=== PATIENT | male | born 1995 | race Caucasian/White ===

== ENCOUNTER 2016-12-28 04:25 | Emergency (ER) | payer OTHER ==
[~2016-12-28] VITALS: Ht 180.3 cm; Wt 74.0 kg
[2016-12-28 04:34] VITALS: BP 122/80; PULSE 83; RESP 16; TEMP 98; O2SAT 98
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
[2016-12-28 04:59] LABS: AUTOMATED NEUTROPHIL # 5.4 TH/MM3 (1.8-7.7); BASOPHIL % 0.3 % (0.0-2.0); EOSINOPHIL # 0.1 TH/MM3 (0-0.4); EOSINOPHIL % 0.6 % (0.0-4.0); HEMATOCRIT 44.6 % (39.0-51.0); HEMO FLAGS DIFF FINAL; LYMPH % 25.4 % (9.0-44.0); LYMPHOCYTE # 2.1 TH/MM3 (1.0-4.8); MEAN CELL VOLUME 88.5 FL (80.0-100.0); MONO % 8.3 % (0.0-8.0); NEUT % 65.4 % (16.0-70.0); PLATELET COUNT 254 TH/MM3 (150-450); RED BLOOD COUNT 5.05 MIL/MM3 (4.50-5.90); RED CELL DISTRIBUTION WIDTH 12.9 % (11.6-17.2); WHITE BLOOD COUNT 8.2 TH/MM3 (4.0-11.0)
[2016-12-28 05:07] LABS: AMPHETAMINE, URINE NEG (NEG); BARBITURATES, URINE NEG (NEG); COCAINE, URINE NEG (NEG)
[2016-12-28 05:17] LABS: ALT (GPT) 25 U/L (12-78); ANION GAP 7 MEQ/L (5-15); AST (GOT) 21 U/L (15-37); BICARBONATE 28.3 MEQ/L (21.0-32.0); BLOOD UREA NITROGEN 9 MG/DL (7-18); CHLORIDE 108 MEQ/L (98-107); GLOMERULAR FILTRATION RATE 116 ML/MIN (>89); SODIUM (NA) 143 MEQ/L (136-145)
[2016-12-28 05:19] LABS: ALKALINE PHOSPHATASE 73 U/L (45-117); TOTAL BILIRUBIN ADULT 0.3 MG/DL (0.2-1.0)
[2016-12-28 05:26] LABS: ACETAMINOPHEN LESS THAN 2.0 MCG/ML (10.0-30.0)
[2016-12-28 09:00] VITALS: BP 125/70; PULSE 89; RESP 20; O2SAT 98
[2016-12-28] MEDS ORDERED: FLUMAZENIL 0.5 MG/5 ML VIAL IV PUSH PRN (09:30)
[2016-12-28] MEDS ORDERED: LORazepam 2 MG/ML VIAL IV PUSH PRN ×4 (09:30)
[2016-12-28] MEDS ORDERED: LORazepam 2 MG TAB PO PRN (09:30)
[2016-12-28] MEDS ORDERED: LORazepam 1 MG TAB PO PRN (09:30)
[2016-12-28 13:20] VITALS: BP 125/72; PULSE 68; RESP 18; TEMP 88.5; O2SAT 95
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
[2016-12-28 18:00] VITALS: BP 122/58; PULSE 72; RESP 18
[2016-12-28 22:00] VITALS: BP 135/76; PULSE 65; RESP 20
[2016-12-29 02:24] VITALS: BP 109/66; PULSE 50; RESP 18; O2SAT 98
[2016-12-29 10:05] VITALS: BP 127/78; PULSE 55; RESP 18
--- NOTE | 2016-12-29 13:43 | PD ---
History of Present Illness Chief Complaint: Psychiatric Symptoms Time Seen by Provider: 13:30 Travel History International Travel<30 Days: No Contact w/Intl Traveler<30days: No Known affected area: No Legal Status Legal Status: Hernandez Act Hernandez Act Signed By: Concha Hernandez Act Comment: Officer Di Higgins [id number] History of Present Illness: 21-year-old male who apparently wrapped a belt around his neck in a suicide attempt. Informed his mother he was going to do this. Police removed the belt and patient was 100% revived. At this time the patient is calm, pleasant and cooperative. He denies any suicidal or homicidal ideation, plan or intent. He states that he has a lot going on right now, including legal matters. (This physician reviewed his records.) He demonstrates no psychotic symptoms and his cognition is completely intact. He is verbally shaq for safety and would like to see an outpatient psychiatrist for follow up care. He was given the referral to Dr. Aries griffin. [facility] Past Medical History ADHD: Yes Bipolar Disorder: Yes Depression: Yes Psychiatric: Yes (bipolar) Immunizations Current: Yes Tetanus Vaccination: < 5 Years Past Surgical History Surgical History: No Previous Surgery Psychiatric History Psychiatric History Hx Psychiatric Treatment: Hx. Depression, BiPolar and ADHD. This physician sees no significant evidence of bipolar disorder at this time. However the patient is 21 years old and appears to be acting out. History of Inpatient Treatment: No Guns or firearms in home: No Social History Hx Alcohol Use: Yes Hx Tobacco Use: Yes Hx Substance Use: Yes Substance Use Type: Alcohol, Marijuana Hx of Substance Use Treatment: No Allergies-Medications (Allergen,Severity, Reaction): Coded Allergies: No Known Allergies (Unverified , 12/28/16) Reported Meds & Prescriptions Reported Meds & Active Scripts Active No Active Prescriptions or Reported Medications Review of Systems Except as stated in HPI: all other systems reviewed are Neg Exam Alert: Yes Taiban: Person, Place, Date, Situation Mood: Calm Affect: Appropriate, Euthymic Speech: Clear, Logical Eye Contact: Normal Memory Intact: Immediate, Recent, Remote Insight/Judgement Adequate MDM Medical Decision Making Medical Record Reviewed: Yes Assessment/Plan Patient's Hernandez act is being lifted and he is being discharged home. As he is currently competent, without suicidal or homicidal ideation or psychosis, and he wishes to be seen on an outpatient basis, least restrictive alternative applies. Furthermore, this physician feels the patient dealing with his "stressors" including legal matters is appropriate and it would be counter therapeutic to admit him to the hospital at this time. Additionally, the patient was advised to stop drinking alcohol. Orders Diet Regular Basic (12/29/16 Breakfast) Diet Regular Basic (12/29/16 Dinner) Diet Regular Basic (12/29/16 Lunch) Results Vital Signs Date Time Temp Pulse Resp B/P Pulse Ox O2 Delivery O2 Flow Rate FiO2 12/29/16 10:05 55 18 127/78 Room Air 12/29/16 02:24 50 18 109/66 98 12/28/16 22:00 65 20 135/76 12/28/16 18:00 72 18 122/58 Room Air Diagnosis Primary Impression: Medical clearance for psychiatric admission Additional Impressions: Alcohol intoxication Suicidal behavior with attempted self-injury Adjustment disorder with mixed disturbance of emotions and conduct Departure Forms: Tests/Procedures Patient Instructions: General Instructions, Alcohol Intoxication (ED), Suicide Prevention for Adults (ED), Medical Clearance for Psychiatric Care (ED) Additional Instructions: Discharge Home Dx. Alcohol Intoxication Resource Package given, follow-up as needed Return to ED for further problems Prescriptions No Active Prescriptions or Reported Meds Disposition: 01 DISCHARGE HOME Condition: Stable Problem Qualifiers Additional Impressions: Alcohol intoxication Qualified Code: F10.920 - Alcohol intoxication, uncomplicated John Donohue MD Dec 29, 2016 13:43
[2016-12-29 14:45] VITALS: BP 127/78; TEMP 97.3
== END 2016-12-29 14:00 | disposition home or self-care (01) ==
LOC: NEPD 04:25 → NEPJ 12-29 14:00
DX: F43.25 Adjustment disorder with mixed disturbance of emotions and conduct (principal); F19.20 Other psychoactive substance dependence, uncomplicated; F10.920 Alcohol use, unspecified with intoxication, uncomplicated; Z72.0 Tobacco use
CPT/HCPCS: 80053; 80307; 85025; 99283